=== PATIENT | female | born 1990 | race Caucasian/White ===

== ENCOUNTER 2018-11-30 18:33 | Emergency (ER) | payer SELFPAY ==
[~2018-11-30] VITALS: Ht 165.1 cm; Wt 71.8 kg
[2018-11-30 18:49] VITALS: BP 130/77; PULSE 103; RESP 22; Ht 165.1 cm; Wt 71.8 kg
== END 2018-11-30 21:33 | disposition left against medical advice (07) ==
LOC: FTE 18:33
DX: Z53.21 Procedure and treatment not carried out due to patient leaving prior to being seen by health care provider (principal)